=== PATIENT | female | born 1995 | race Caucasian/White ===

== ENCOUNTER 2022-04-25 10:46 | Emergency (ER) | payer OTHER, SELFPAY ==
[2022-04-25 11:00] VITALS: BP 122/76; PULSE 75; RESP 16; TEMP 36.6; O2SAT 99
--- NOTE | 2022-04-25 12:20 | ED.GENADULT ---
HPI - General Adult General Chief complaint: Upper Respiratory Infection Stated complaint: rash/fever/vomiting Time Seen by Provider: 04/25/22 12:20 Source: patient, RN notes reviewed and old records reviewed Mode of arrival: ambulatory Limitations: no limitations History of Present Illness HPI narrative: 26 year old female who presents to [facility] with stated complaints of frontal headache going to temples which started yesterday with nausea and vomiting and light sensitivity rates her pain 4/10 at present time. Patient denies any nausea at present time. Patient is also concerned she may have start of sinus infection, denies any fevers, chilss or sweats, no body aches sore throat or ear pain, states some nasal drainage. She also states she is concerned with small red rash under breasts on abdomen and back for past few days thinks may be heat rash does not have air conditioning in car and drives to [facility] for work complaint: migraine with nausea and vomiting, rash, sinus drainage Severity scale (1-10): 4 Treatments prior to arrival: NSAID and other (excedrin migraine) Related Data Allergies Allergy/AdvReac Type Severity Reaction Status Date / Time No Known Allergies Allergy Verified 01/03/14 14:42 Review of Systems Review of Systems: CONSTITUTIONAL: Denies fever, chills, or sweats. EYES: Denies visual changes, redness, or discharge.some photophobia ENT: states rhinorrhea, congestion,no sore throat, or otalgia. CARDIOVASCULAR: Denies chest pain, palpitations, or edema. RESPIRATORY: Denies cough or dyspnea. GASTROINTESTINAL: Denies abdominal pain,episodes of nausea, vomiting, no diarrhea. GENITOURINARY: Denies dysuria or hematuria. SKIN:positive for rash or itching. MUSCULOSKELETAL: Denies back pain, joint pain, or myalgia. NEUROLOGIC: Positive for headache,no numbness, or weakness. PSYCHIATRIC: Denies anxiety or depression. All systems reviewed & are unremarkable except as noted in HPI and below PMFSH Past Medical History Medical History (Updated 04/28/22 @ 09:27 by Dee Villarreal NP) Anxiety Migraine Surgical History Surgical History (Updated 04/28/22 @ 09:27 by Dee Villarreal NP) History of dental surgery Family History Family History (Updated 04/28/22 @ 09:29 by Dee Villarreal NP) Grandparent Diabetes mellitus Heart disease Social History Social History (Updated 04/28/22 @ 09:30 by Dee Villarreal NP) Smoking status: Former smoker Tobacco type: cigarettes Alcohol intake: current Alcohol use details: social Substance use: unknown Gender identity (if verbalized by the patient): Female Comments At time of signature, agree with nursing past medical, surgical, social and family history. There is no relevant family history pertinent to the presenting complaint Exam Narrative: GENERAL: Well-appearing, well-nourished, and in no acute distress. HEAD: Normocephalic, atraumatic. EYES: PERRLA and EOMI.no nystagmus reports some photophobia ENT: Nares minimal redness clear rhinorrhea no epistaxis. Mucous membranes moist.TM's normal with good light reflex, throat with minimal redness no exudates lesions or tonsil swelling, some nasal discharge. NECK: Supple.no lymphadenopathy CHEST: Clear to auscultation. No respiratory distress.SAO2 99% on room air HEART: Regular rate and rhythm. No murmur heard. Normal peripheral pulses. ABDOMEN: Soft, nontender, nondistended, normal active bowel sounds, denies any present nausea. EXTREMITIES: Normal range of motion. No edema. SKIN: Warm, dry, fine red rash noted under breasts on abdomen and back small scattered areas, no linear formation or any pustules NEURO: No focal deficits. Alert and oriented x3. Course Course Level of Care: Express Care Visit Vital Signs Vital signs: Vital Signs Temperature 36.6 C 04/25/22 11:00 Pulse Rate 75 04/25/22 11:00 Respiratory Rate 16 04/25/22 11:00 Blood Pressure 122/76 04/25/22 11:00 Pulse Ox
== END 2022-04-25 12:54 | disposition home or self-care (01) ==
PROVIDERS: Emergency Provider Registered Nurse
DX: G43.909 Migraine, unspecified, not intractable, without status migrainosus (principal); R11.2 Nausea with vomiting, unspecified; Z87.891 Personal history of nicotine dependence
CPT/HCPCS: 99213; G0463

== ENCOUNTER 2022-11-09 16:14 | Emergency (ER) | payer OTHER, SELFPAY ==
--- NOTE | 2022-11-09 16:22 | ED.EYEPROB ---
HPI - Eye Problem General Chief complaint: Eye Problems Stated complaint: left eye redness/swelling Time Seen by Provider: 11/09/22 16:57 Source: patient and RN notes reviewed Mode of arrival: ambulatory Limitations: no limitations History of Present Illness HPI Narrative: 26-year-old female who is 8 weeks presents with concern for left eye redness, irritation, green discharge. She reports slightly blurry vision in that eye. She does not were contact lenses or has not injured her eye. She denies recent upper respiratory illness chief complaint: eye redness Related Data Home Medications Medication Instructions Recorded Confirmed Alive Premium 1 tab-cap PO DAILY 11/09/22 11/09/22 metoclopramide HCl 10 mg tablet 10 mg PO DIRECTED 11/09/22 11/09/22 Allergies Allergy/AdvReac Type Severity Reaction Status Date / Time No Known Allergies Allergy Verified 11/09/22 16:18 Review of Systems Review of Systems: CONSTITUTIONAL: Denies malaise, chills, sweats, or fever. EYES: Denies visual changes. Reports left eye redness, irritation, discharge. ENT: Denies rhinorrhea, congestion, sinus pain, otalgia or sore throat. SKIN: Denies rash or itching. NEUROLOGIC: Denies numbness, weakness, or headache. PSYCHIATRIC: Denies anxiety or depression. All systems reviewed & are unremarkable except as noted in HPI and below PMFSH Past Medical History Medical History (Updated 11/09/22 @ 17:00 by Gila Anderson NP) Anxiety Migraine Surgical History Surgical History (Updated 04/28/22 @ 09:27 by Dee Villarreal NP) History of dental surgery Family History Family History (Updated 04/28/22 @ 09:29 by Dee Villarreal NP) Grandparent Diabetes mellitus Heart disease Social History Social History (Updated 04/28/22 @ 09:30 by Dee Villarreal NP) Smoking status: Former smoker Tobacco type: cigarettes Alcohol intake: current Alcohol use details: social Substance use: unknown Gender identity (if verbalized by the patient): Female Comments At time of signature, agree with nursing past medical, surgical, social and family history. There is no relevant family history pertinent to the presenting complaint Exam Narrative: GENERAL: Well-appearing, well-nourished, and in no acute distress. HEAD: Normocephalic, atraumatic. EYES: PERRLA, sclera clear, and EOMI. No nystagmus. Left sclera and conjunctivae injected with green discharge. Upper and lower eyelid unremarkable, no periorbital edema noted ENT: Nares clear, turbinates pink, no rhinorrhea or epistaxis. Mucous membranes moist. TM pearly minor with sharp light reflex bilaterally; no tragal tenderness. NECK: Supple. CHEST: No respiratory distress. Speaks in full sentences. HEART: Regular rate and rhythm. SKIN: Warm, dry, no visible rash. NEURO: Alert and oriented x3. PSYCH: Normal mood and affect Course Course Emergency Course: Patient is aware of diagnosis, understands and agrees to treatment plan. Anticipatory guidance given. Patient agrees to follow-up as directed and is aware of reasons to seek care at the emergency department. Portions of this record may have been created with voice recognition software Level of Care: Express Care Visit Vital Signs Vital signs: Reviewed. MDM - Eye Problem MDM Narrative Medical decision making narrative: Consideration of the following conditions may be warranted for the presenting problem, they are not final diagnoses: Bacterial conjunctivitis, allergic conjunctivitis, viral conjunctivitis, foreign body, blepharitis, chalazion, hordeolum, corneal abrasion, preseptal cellulitis, orbital cellulitis. No evidence of proptosis, ophthalmoplegia, vision loss, pain with eye movement. Exam findings show no acute concerns or changes; patient is non-toxic appearing and is in no distress. Patient is appropriate for outpatient treatment and follow-up. Critical Care Time Critical Care Time Cri
[2022-11-09 16:25] VITALS: BP 121/62; PULSE 76; RESP 18; TEMP 37; O2SAT 99
== END 2022-11-09 17:06 | disposition home or self-care (01) ==
PROVIDERS: Emergency Provider Nurse Practitioner
DX: H10.9 Unspecified conjunctivitis (principal); Z87.891 Personal history of nicotine dependence
CPT/HCPCS: 99213; G0463

== ENCOUNTER 2022-12-15 13:43 | Emergency (ER) | payer OTHER, SELFPAY ==
[2022-12-15 14:09] VITALS: BP 121/49; PULSE 82; RESP 16; TEMP 36.8; O2SAT 99
--- NOTE | 2022-12-15 14:41 | ED.URI ---
HPI - URI/Sore Throat General Chief Complaint: Upper Respiratory Infection Stated Complaint: sore throat Time Seen by Provider: 12/15/22 14:41 Source: patient and RN notes reviewed Mode of arrival: ambulatory Limitations: no limitations History of Present Illness HPI Narrative: 27-year-old female presented for complaint left ear pain radiating into the throat. Onset yesterday. She endorses sinus congestion and drainage. It is nausea vomiting diarrhea fevers or chills. She is currently 13 weeks gestation. MD elicited complaint: cough Related Data Allergies Allergy/AdvReac Type Severity Reaction Status Date / Time No Known Allergies Allergy Verified 12/15/22 14:11 Review of Systems Review of Systems: CONSTITUTIONAL: Denies malaise, chills, sweats, fever EYES: Denies visual changes, redness, or discharge ENT: Reports rhinorrhea, congestion, postnasal drainage, otalgia, sore throat CARDIOVASCULAR: Denies chest pain, palpitations, edema RESPIRATORY: Denies dyspnea GASTROINTESTINAL: Denies abdominal pain, nausea, vomiting, diarrhea SKIN: Denies rash or itching MUSCULOSKELETAL: Denies myalgia NEUROLOGIC: Denies headache PMFSH Past Medical History Medical History Anxiety Migraine Surgical History Surgical History History of dental surgery Family History Family History Grandparent Diabetes mellitus Heart disease Social History Social History Smoking status: Former smoker Tobacco type: cigarettes Alcohol intake: current Alcohol use details: social Substance use: unknown Gender identity (if verbalized by the patient): Female Exam Narrative: GENERAL: well-appearing EYES: conjunctivae clear ENT: Mucous membranes moist. TM pearly minor with dull light reflex bilaterally clear effusion to the left TM; no tragal tenderness. Oropharynx erythematous without lesions or exudate, no drooling, no hoarseness, no trismus, uvula midline. NECK: Supple. No lymphadenopathy CHEST: Clear to auscultation, breath sounds equal. HEART: Regular rate and rhythm. No murmur heard. SKIN: Warm, dry, no rash. NEURO: Alert and oriented x3. PSYCH: Normal mood and affect Course Course Emergency Course: Patient is aware of diagnosis, understands and agrees to treatment plan. Anticipatory guidance given. Patient agrees to follow-up as directed and is aware of reasons to seek care at the emergency department. Portions of this record may have been created with voice recognition software Level of Care: Express Care Visit Vital Signs Vital signs: Vital Signs Temperature 98.3 F 12/15/22 14:09 Pulse Rate 82 12/15/22 14:09 Respiratory Rate 16 12/15/22 14:09 Blood Pressure 121/49 L 12/15/22 14:09 Pulse Oximetry 99 12/15/22 14:09 Oxygen Delivery Room Air 12/15/22 14:09 Temperature 98.3 F 12/15/22 14:09 Pulse Rate 82 12/15/22 14:09 Respiratory Rate 16 12/15/22 14:09 Blood Pressure 121/49 L 12/15/22 14:09 Pulse Oximetry 99 12/15/22 14:09 Oxygen Delivery Room Air 12/15/22 14:09 reviewed MDM - URI/Sore Throat MDM Narrative Medical decision making narrative: Results of strep test reviewed with patient. Advised supportive measures and signs/symptoms to go to the ER. Pt is appropriate for outpt treatment and f/u. Differential Diagnosis Differential diagnosis: Likely upper respiratory infection, sinusitis and viral infection Lab Data Labs: Strep Screen Presumptive Negative *(Reference Range: Negative)* Discharge Plan Discharge Clinical Impression: Otalgia of left ear Patient Disposition: Home, Self-Care Condition: Stable Instructions: Antibiotic Form Additional Instructions: Rapid
== END 2022-12-15 15:10 | disposition home or self-care (01) ==
PROVIDERS: Emergency Provider Nurse Practitioner Family
DX: H92.02 Otalgia, left ear (principal); Z87.891 Personal history of nicotine dependence
CPT/HCPCS: 87081; 87880; 99213; G0463

== ENCOUNTER 2023-06-12 05:10 | Inpatient (IN) | payer OTHER, SELFPAY ==
[2023-06-12] VITALS (119 sets, daily range): BP systolic 84–165; BP diastolic 45–99; PULSE 51–126; RESP 18; TEMP 36.3–36.9; O2SAT 82–100; BMI 31.4
--- NOTE | 2023-06-12 05:30 | LDADM ---
This patient, Kaylee De Jesus, was admitted to Labor/Delivery/Recovery 107 on 06/12/23 at 05:10. Plans for labor, pain management and were discussed with patient. Patient/family oriented to hospital policies and general routines including ID bracelet, bed and alarms, visiting hours, pain management, procedures, bathroom and other care routines, personal items, smoking policy, room service/diet and guest tray routines, security routines, and visiting hours. Patient/Family are encouraged to report perceived risks to care and to ask questions if they do not understand what they are told or what they should do. See OBIX for further documentation.
[2023-06-12 05:42] LABS: Basophils Percent Auto 0.2 % (0.2-1.2); Eosinophils Absolute Auto 0.1 K/mm3 (0-0.3); Eosinophils Percent Auto 0.7 % (0-4.4); Hematocrit 34.5 % (37.0-47.0); Hemoglobin 11.3 g/dL (12.0-15.0); Immature Granulocyte Absolute 0.05 K/mm3 (0.00-0.031); Immature Granulocyte Percent A 0.5 % (0-0.5); Lymphocytes Absolute Auto 1.69 K/mm3 (0.9-3.2); Lymphocytes Percent Auto 16.5 % (18.3-44.2); Mean Corpuscular HGB Conc 32.8 g/dl (32-36); Mean Corpuscular Hemoglobin 29.7 pg (26-34); Mean Corpuscular Volume 90.8 fl (80-100); Mean Platelet Volume 10.3 fl (7.4-10.4); Monocytes Absolute Auto 0.8 K/mm3 (0.1-0.6); Neutrophils Absolute Auto 7.6 K/mm3 (1.3-6.7); Neutrophils Percent Auto 74.1 % (45.5-73.1); Platelet Count Result 211 k/mm3 (150-375); Red Cell Distribution Width 14.3 % (11.5-14.5); White Blood Count 10.3 K/mm3 (4.5-10.0)
[2023-06-12] MEDS: LACTATED RINGERS 1,000 ML 125 ML IV CONT ×3 (06:00→11:10)
[2023-06-12] MEDS: OXYTOCIN 30 UNITS/NS 500 ML 30 UNITS/500 ML BAG IV CONT (06:00)
--- NOTE | 2023-06-12 07:28 | WPDOBADMIT ---
Obstetrics - Admit Note Admission Note: record reviewed. No pertinent additions to the history and/or any subsequent changes in the physical findings that are not consistent with the expected course of the were found.IOL SVE 2-/-2 AROM small amount of clear, odorless fluid, anticipate vaginal delivery Additions to the history and/or subsequent changes in the physical findings follow. None.
--- NOTE | 2023-06-12 10:27 | WPDANESEPP ---
Anes - Eval Pre Procedure Procedure: Labor Epidural Date/Time: 06/12/23 10:27 Surgeon: Sushila Preop Diagnosis: Labor Pain Pre Op Diagnosis: Induction of Labor Patient Data Age: 27 Gender: F Height: Weight: Last Vital Signs Temp 36.5 C 06/12/23 09:17 Pulse 78 06/12/23 10:16 BP 84/45 L 06/12/23 10:16 Pulse Ox 100 06/12/23 06:53 O2 Del Method Room Air 06/12/23 05:29 Allergies Allergy/AdvReac Type Severity Reaction Status Date / Time No Known Allergies Allergy Verified 05/20/23 12:47 Home Medications Medication Instructions Recorded Confirmed Type Classic 1 tab-cap PO DAILY 05/20/23 05/20/23 History ferrous sulfate 325 mg (65 mg 325 mg PO BID 05/20/23 05/20/23 History iron) tablet,delayed release Laboratory Tests 06/12/23 05:35 WBC 10.3 H K/mm3 (4.5-10.0) RBC 3.80 L M/mm3 (4.2-5.4) Hgb 11.3 L g/dL (12.0-15.0) Hct 34.5 L % (37.0-47.0) MCV 90.8 fl (80-100) MCH 29.7 pg (26-34) MCHC 32.8 g/dl (32-36) RDW 14.3 % (11.5-14.5) Plt Count 211 k/mm3 (150-375) MPV 10.3 fl (7.4-10.4) Immature Gran % (Auto) 0.5 % (0-0.5) Neut % (Auto) 74.1 H % (45.5-73.1) Lymph % (Auto) 16.5 L % (18.3-44.2) Knott % (Auto) 8.0 % (2.6-8.5) Eos % (Auto) 0.7 % (0-4.4) Baso % (Auto) 0.2 % (0.2-1.2) Lymph # (Auto) 1.69 K/mm3 (0.9-3.2) Knott # (Auto) 0.8 H K/mm3 (0.1-0.6) Eos # (Auto) 0.1 K/mm3 (0-0.3) Baso # (Auto) 0.0 K/mm3 (0.0-0.1) Abs Immat Gran (auto) 0.05 H K/mm3 (0.00-0.031) Absolute Neuts (auto) 7.6 H K/mm3 (1.3-6.7) Absolute Nucleated RBC 0.0 K/mm3 (0.0-0.012) Nucleated RBC % 0.0 % (0.0-0.2) RPR Pending Blood Type O Positive Antibody Screen Negative : gestational age (, ROSENDO 06/18/23) Patient hx anesthesia problems: none Family hx anesthesia problems: none Results Review: All pre-operative results and documents have been reviewed as part of the pre-operative evaluation. [facility] Past Medical History Medical History Anxiety Migraine Surgical History Surgical History History of dental surgery Family History Family History Grandparent Diabetes mellitus Heart disease Mother Congestive heart failure Father Heart disease Social History Social History Smoking status: Former smoker Tobacco type: cigarettes Second hand tobacco smoke exposure: No Smoking end date: 08/19/20 Alcohol intake: current Alcohol use details: social Substance use: never Lack of Transportation: No Lack of Food: Never True Current Housing: I Have Housing Concerned About Future Housing: No Difficulty Paying Gas/Electric Bills: No Difficulty Paying for Meds: No Currently Unemployed: No Education: High School Diploma/GED Difficulty w/ Childcare or Family Care: No Gender identity (if verbalized by the patient): Female Spiritual care concerns: No Exam Day of Procedure 06/12/23 10:27 Patient weight: overweight Heart: regular rate and rhythm Lungs: normal air movement Airway: Mallampati scale class II Neurological: alert and oriented
--- NOTE | 2023-06-12 13:48 | P.PCNOB_ITS ---
OB - Delivery Note Procedure Delivery date: 06/12/23 Procedure: Induction method: AROM and Per Pitocin Protocol Delivery monitor: External FHT and External Uterine Route of delivery: Episiotomy description: Other Specimen: No Quantitative Blood Loss (ml): 225 Anesthesia type: Epidural Disposition: Floor [place] Baby Date of : 06/12/23 Time of : 13:38 Weeks of gestation at delivery: 39 gender: Female presentation: vertex position: Left Occiput Anterior Placenta delivery description: Spontaneous Cord Vessel Description: 3 Vessels, Nuchal Cord, Loose, Reduced and Delayed Cord Clamping score one minute: 8 score five minutes: 9 Narrative: mother and baby skin to skin in stable condition
[2023-06-12] MEDS: OXYTOCIN 30 UNITS/NS 500 ML 30 UNITS/500 ML BAG 125 UNITS IV CONT (14:23)
[2023-06-12 14:43] LABS: Rapid Plasma Reagin Non-Reactive (NonReactive)
--- NOTE | 2023-06-12 18:02 | ADMGEN ---
This patient, Kaylee De Jesus, was admitted to OB 2nd Floor Room 282-00. Patient/family oriented to hospital policies and general routines including ID bracelet, bed and alarms, visiting hours, pain management, procedures, bathroom and other care routines, personal items, smoking policy, room service/diet, and visiting hours. Information on how to activate the Rapid Response Team has been discussed. Patient/Family are encouraged to report perceived risks to care and to ask questions if they do not understand what they are told or what they should do.
[2023-06-13] MEDS: BENZOCAINE 20% AER SPR (*SP) 56 GM CAN 1 SPRAY TOPICAL (02:56)
[2023-06-13] MEDS: LANOLIN (LANSINOH) 7.5 GM CREAM 1 APPLIC TOPICAL (02:56)
[2023-06-13] MEDS: WITCH HAZEL 40 PADS 1 PAD TOPICAL (02:56)
[2023-06-13 04:21] LABS: Hematocrit 31.2 % (37.0-47.0); Hemoglobin 10.3 g/dL (12.0-15.0)
[2023-06-13 08:00] VITALS: BP 129/82; PULSE 71; RESP 16; TEMP 36.6; O2SAT 100
--- NOTE | 2023-06-13 08:28 | PM.OBPNVD ---
OB - PN: Subj Subjective Date/time seen: 06/13/23 08:28 Patient comments: no complaints, pain well controlled, incisional pain, tolerating diet and flatus present OB - PN: Obj Data Labs 06/13/23 03:18 Labs: Laboratory Results - last 24 hr 06/12/23 06/13/23 05:35 03:18 Hgb 10.3 L Hct 31.2 L RPR Non-reactive OB - PN A/P Plan day: 1 Plan: routine care Comments: No problems, routine care Time Spent With Patient Time: Total time spent is greater than 50% in coordination of care (as documented) at patient's floor/unit and/or counseling patient: Exam Const: General: comfortable, no acute distress and alert Resp: Effort & Inspection: normal respiratory effort Auscultation: no crackles, no rales and no rhonchi Cardio: Rate: regular rate Heart sounds: no click, no murmurs and no rubs GI: Inspection: non-distended GI Palp: No Tenderness to palpation present (GI) Auscultation: normal bowel sounds Other: Incision - CDI Extrem: General: normal to inspection, no pedal edema and no calf tenderness
--- NOTE | 2023-06-13 08:30 | PC.NURSE ---
PT introductions made and plan of care discussed per post , pain management, breast feeding, daily care activities and pending discharge to home. PT and fob both recipients of such instructions and no barriers to learning identified at this time. PT received such instructions per one to one discussion, mom baby care guide and demonstrations this shift. PT verbalized understanding of such care.
[2023-06-13] MEDS: DOCUSATE SODIUM 100 MG CAPSULE PO (08:41)
[2023-06-13] MEDS: MULTIVIT/MIN/PREN/FOL AC/IRON TABLET 1 TAB PO (08:41)
[2023-06-13] MEDS: IBUPROFEN 600 MG TABLET PO (08:42)
[2023-06-13 08:45] VITALS: PULSE 71; RESP 16; O2SAT 100
[2023-06-13 12:19] VITALS: BP 136/74; PULSE 75; RESP 18; TEMP 36.5; O2SAT 100
--- NOTE | 2023-06-13 13:19 | PM.OBDSVD ---
DS: Admitting Diagnosis Discharge Date June 13, 2023 Admitting Diagnosis term OB - DS: Summary OB Procedures : None OB Procedures Intrapartum: Spontaneous Vag Delivery OB Procedures: : None Time Spent with Patient Time attestation: Total time spent providing and/or coordinating discharge services: DS: Data Data Completed and Pending Labs on day of discharge: Labs from last 24 hours 06/13/23 06/12/23 03:18 05:35 Hgb 10.3 L Hct 31.2 L RPR Non-reactive Discharge Plan Discharge Discharging Clinician: Jose M Conti Patient Disposition: Home, Self-Care Activity: pelvic rest Diet: regular Patient Instructions: Antibiotic Form Stand Alone Forms: General Discharge Information Follow-up/Referrals: Jose M Conti MD [Physician] - Discharge Medications: Continued ferrous sulfate 325 mg (65 mg iron) Tablet,Delayed Release (Dr/Ec) 325 mg PO BID Classic 1 tab-cap PO DAILY Date of admission: 06/12/23 05:10 Primary Care Provider: UNKNOWN,DOCTOR Admitting Provider: Jose M Conti Attending physician on admission: Jose M Conti Condition: Stable
--- NOTE | 2023-06-13 13:21 | WPDANLDPN2 ---
Anes-Prog Note L&D Date/Time: 06/13/23 13:21 Comfortable throughout: labor and delivery Neuraxial method: epidural Epidural/Spinal procedure site: clean & non-tender Neuro status: Neuro function grossly intact. Cardiovascular status: normal Respiratory status: normal Airway patency: baseline Mental status: baseline Post-Op hydration status: normal Vital Signs: Last Vital Signs Temp 36.5 C 06/13/23 12:19 Pulse 75 06/13/23 12:19 Resp 18 06/13/23 12:19 BP 136/74 06/13/23 12:19 Pulse Ox 100 06/13/23 12:19 O2 Del Method Room Air 06/13/23 08:45 Pain score (VAS): 2/10 I/O: Intake & Output 06/12/23 06/13/23 06/13/23 23:59 07:59 15:59 Intake Total 1740 240 Output Total 75 Balance 1665 240 Patient feedback: Patient satisfied with anesthetic care.
--- NOTE | 2023-06-13 14:18 | PC.NURSE ---
[phone] Introductions were made, then consulted with patient to assess needs related to . Mother led the conversation with her?plans to feed?her infant, the?experience so far and is demonstrating working with infant to obtain a latch. Mother states just finished eating. Resources provided for inpatient and outpatient services with the feeding sheet, mom/baby guide and name written on the white board. Mother voiced understanding of information and will call if there is a request for assistance. [phone] Consulted with patient to assess needs related to . Mother is leaning over attempting to latch to the right breast using football positioning. Reviewed sitting comfortably, positioning pillows for supporting nose to nipple alignment, supporting the breast to facilitate a deep latch, asymmetrical latch (off-center), leading with the chin with a big, open, wide gape and body close to mother. Infant latched optimally to the right breast in football position. Education given to mother of how to visualize suck/swallow, listen for drinking at the breast and stimulating to actively breastfeed. Infant was able to maintain latch without discomfort to mother. Nipple care reviewed with optimal latch and good positioning. Mother is feeding appropriately for growth of infant and understands stimulating to eat if needed. Infant has had appropriate feedings in the last 24 hours meets the outcomes for weight, output and jaundice at this time. Reinforced understanding of milk production, transition of milk, signs of adequate intake, transition of stool, prevention/relief of engorgement, plugged ducts, mastitis, responsive watching for feeding cues, the different methods of stimulating infant to breastfeed on demand or every 2-3 hours after the start of the last feeding, community resources, and when to call a provider using the resource of the mom and baby guide. Mother voiced understanding of the education shared. Reported to the primary RN.
--- NOTE | 2023-06-13 15:35 | PC.NURSE ---
Patient was given the opportunity to view the discharge video Mother & Baby Care, The First Two Weeks and to ask questions. Patient declined viewing the video and has been given the mother/baby guide for home reference. PT receive discharge instructions per protocol and verbalized understanding of such care.
--- NOTE | 2023-06-13 16:08 | PC.NURSE ---
PT discharged to home ambulatory accompanied by fob and infant and taken to waiting car. Follow up appts confirmed
== END 2023-06-13 16:08 | disposition home or self-care (01) | DRG 560 ==
LOC: ANHLDR 05:12 → ANHOB2 18:15
PROVIDERS: Admitting Provider Obstetrics & Gynecology; Referring Provider Advanced Practice Midwife; Visit Provider Obstetrics & Gynecology
DX: O69.81X0 Labor and delivery complicated by cord around neck, without compression, not applicable or unspecified (principal); Z37.0 Single live birth; Z3A.39 39 weeks gestation of pregnancy
CPT/HCPCS: 36415; 85014; 85018; 85025; 86592; 86850; 86900; 86901; A9270; J2590; J2795; J7120